=== PATIENT | male | born 1980 | race Caucasian/White ===

== ENCOUNTER 2018-02-16 15:17 | Emergency (ER) | payer OTHER ==
[~2018-02-16] VITALS: Ht 182.9 cm; Wt 90.7 kg
[2018-02-16] MEDS ORDERED: ZOFRAN ODT8 MG PO (16:44)
== END 2018-02-16 17:02 | disposition home or self-care (01) ==
LOC: ED 15:17
DX: F11.23 Opioid dependence with withdrawal (principal); F17.200 Nicotine dependence, unspecified, uncomplicated; Z88.0 Allergy status to penicillin
CPT/HCPCS: 96372; 99283; J1885